=== PATIENT | female | born 1980 | race Caucasian/White ===

== ENCOUNTER → 2023-12-12 07:45 | Outpatient (REF) | payer OTHER, SELFPAY | LOC: WDC 07:45 | PROVIDERS: ATTENDING PHYSICIAN Obstetrics & Gynecology Gynecology; FAMILY PHYSICIAN Physician Assistant Medical | DX: R92.2 Inconclusive mammogram (principal) | CPT/HCPCS: 76641 ==

== ENCOUNTER → 2024-06-03 07:53 | Outpatient (REF) | payer OTHER, SELFPAY | LOC: WDC 07:53 | PROVIDERS: ATTENDING PHYSICIAN Obstetrics & Gynecology Gynecology; FAMILY PHYSICIAN Physician Assistant Medical | DX: R92.8 Other abnormal and inconclusive findings on diagnostic imaging of breast (principal) | CPT/HCPCS: 76642 ==

== ENCOUNTER → 2024-09-05 15:28 | Outpatient (REF) | payer OTHER, SELFPAY | LOC: WDC 15:28 | PROVIDERS: ATTENDING PHYSICIAN Obstetrics & Gynecology Gynecology; FAMILY PHYSICIAN Physician Assistant Medical | DX: Z12.31 Encounter for screening mammogram for malignant neoplasm of breast (principal) | CPT/HCPCS: 77063; 77067 ==

== ENCOUNTER → 2024-12-03 07:37 | Outpatient (REF) | payer OTHER, SELFPAY | LOC: WDC 07:37 | PROVIDERS: ATTENDING PHYSICIAN Obstetrics & Gynecology Gynecology; FAMILY PHYSICIAN Physician Assistant Medical | DX: R92.2 Inconclusive mammogram (principal) | CPT/HCPCS: 76641 ==

== ENCOUNTER 2025-05-08 12:56 | Emergency (ER) | payer OTHER, SELFPAY ==
[2025-05-08 13:02] VITALS: BP 139/100
--- NOTE | 2025-05-08 15:39 | ED.GENMED ---
History of Present Illness
General
Chief Complaint: Headache
Source: patient
Exam Limitations: none
Time Seen by Provider: 05/08/25 15:12
Nursing documentation reviewed up to this point in time: agreed with
History of Present Illness
History of Present Illness:
44-year-old female limited past medical history, 7 weeks earliest month tested positive for COVID with URI symptoms she has had sinus congestion and drainage which is worse in developed headache left ear ache, pain into her neck saw her PCP
told to use [id number] remedies, she is worried due to the pain that she is having she has had sinus infections previously, no nausea vomiting chest pain or shortness of breath
Past History
Past History
ED Past Medical History: None
ED Past Surgical History: None
Social History
Tobacco: Non-smoker
Alcohol: None
Drug: None
Personal:
Living: with family
Employment: Employed
Review of Systems
Review of Systems
All Other Systems: Not applicable
Constitutional: Denies fever or fatigue
EENT: Reports runny nose and other (ear ache neck pain)
Respiratory: Reports no symptoms
Phy Exam
Physical Exam
Physical Exam:
Physical Exam
General: no apparent distress, not acutely ill
Neck: Left TM red retracted right TM normal posterior pharynx clear
Heart: s1/s2 regular rate and rhythm, no murmur. equal radial pulses.
Lungs: no acute respiratory distress. clear bilaterally
Neuro: alert and oriented. no focal neurological deficits
Skin: no rash
Psychiatric: well kept. interactive and cooperative
Extremities: no edema.
Course
Orders/Labs/Results
Orders:
Orders
05/08/25 15:35
Amoxicillin [Amoxil] 500 mg PO NOW STA
Prednisone [Deltasone] 50 mg PO NOW STA
Vital Signs
Initial and Last Documented VS:
Initial Vital Signs
Temp Pulse Resp BP Pulse Ox
98.6 F 106 18 139/100 97
05/08/25 13:02 05/08/25 13:02 05/08/25 13:02 05/08/25 13:02 05/08/25 13:02
Last Documented Vital Signs
Temp Pulse Resp BP Pulse Ox
98.6 F 106 18 139/100 97
05/08/25 13:02 05/08/25 13:02 05/08/25 13:02 05/08/25 13:02 05/08/25 15:39
MDM/Problems Addressed
Differential Diagnosis Includes:
Sinusitis COVID URI no signs of pharyngitis no complaints or symptoms
MDM/Problems Addressed:
Suspect sinusitis
*Pulse Oximetry
SaO2: 97
Oxygen Mode of Delivery: Room air
Patient hypoxic: no
*Critical Care Note
Total Time (30-74mins, 75-104mins- exclusive of procedures): Not Applicable
Update Note
Update Note:
Update, patient will recheck of her brain tumor I told her I believe this is unlikely based on history and physical, likewise she is so I would not recommend doing CT scan, I would recommend treating empirically for antibiotics and steroids
PCP and OB follow-up ER if worsening symptoms
ED Attending Note
-
Portions of this chart may have been created with voice recognition software.� Occasional wrong word or��sound alike� substitutions may have occurred due to the inherent limitations of voice recognition software.
Discharge Plan
Departure
Patient Disposition: Home (Routine Discharge)
Date of Disposition: 05/08/25
Time of Disposition: 15:36
Patient with high blood pressure during this ER visit?: No
Condition: Good
Covid-19: Not Applicable
Discharge Problem:
Acute sinusitis
Instructions: Sinusitis in adults - ED (DC)
Prescriptions:
New
amoxicillin 500 mg tablet
500 mg PO TID Qty: 20 0RF
methylprednisolone [Medrol (Arnold)] 4 mg tablets,dose pack
See Rx Instructions .ROUTE .COMPLEX Qty: 21 0RF
Rx Instructions:
for 6 days
No Action
acetaminophen 325 mg Tablet
650 mg PO Q4HPRN PRN (Reason: mild pain) Qty: 0 0RF
ibuprofen 600 mg Tablet
600 mg PO Q4HPRN PRN (Reason: cramps) Qty: 0 0RF
Interventions
Interventions:
*Risk Screen - Suicide Last Done: 05/08/25 13:02
*Neglect/Abuse Screening Last Done: 05/08/25 13:02
Discharge Date and Time
Print Language: LEBANESE
[2025-05-08] MEDS: DELTASONE 50 MG PO (16:01)
[2025-05-08] MEDS: AMOXIL 500 MG PO (16:01)
[2025-05-08 16:09] VITALS: BP 131/85; BMI 22.8
== END 2025-05-08 16:17 | disposition home or self-care (01) ==
LOC: EMR 12:56
PROVIDERS: EMERGENCY PHYSICIAN Emergency Medicine; FAMILY PHYSICIAN Physician Assistant Medical
DX: O99.511 Diseases of the respiratory system complicating pregnancy, first trimester (principal); J01.90 Acute sinusitis, unspecified; Z3A.01 Less than 8 weeks gestation of pregnancy
CPT/HCPCS: 99283

== ENCOUNTER → 2025-06-19 16:03 | Outpatient (REF) | payer OTHER, SELFPAY | LOC: PNTC 16:03 | PROVIDERS: ATTENDING PHYSICIAN Obstetrics & Gynecology | DX: Z36.0 Encounter for antenatal screening for chromosomal anomalies (principal); Z36.82 Encounter for antenatal screening for nuchal translucency; O09.521 Supervision of elderly multigravida, first trimester; O09.811 Supervision of pregnancy resulting from assisted reproductive technology, first trimester | CPT/HCPCS: 76801; 76813 ==

== ENCOUNTER → 2025-08-12 08:50 | Outpatient (REF) | payer OTHER, SELFPAY | LOC: PNTC 08:50 | PROVIDERS: ATTENDING PHYSICIAN Obstetrics & Gynecology | DX: O09.522 Supervision of elderly multigravida, second trimester (principal); O34.219 Maternal care for unspecified type scar from previous cesarean delivery; O09.812 Supervision of pregnancy resulting from assisted reproductive technology, second trimester; Z36.89 Encounter for other specified antenatal screening; Z36.86 Encounter for antenatal screening for cervical length | CPT/HCPCS: 76811; 76817; 76820 ==